=== PATIENT | male | born 1950 | race Caucasian/White ===

== ENCOUNTER 2022-01-25 14:36 | Inpatient (IN) | payer MEDICARE, OTHER ==
[~2022-01-25] VITALS: Ht 165.1 cm; Wt 117.9 kg
--- NOTE | 2022-01-25 15:08 | NUR ---
Dr Brown evaluated the pt.
[2022-01-25 15:31] LABS: HEMATOCRIT 47.4 % (36.7-47.1); MEAN CORPUSCULAR HEMOGLOBIN 29.4 uug (23.8-33.4); MEAN CORPUSCULAR VOLUME 87.6 fL (73.0-96.2); PLATELET COUNT (AUTO) 171 K/uL (152-348)
[2022-01-25 15:44] LABS: CREATININE 0.8 mg/dL (0.6-1.3); POTASSIUM 3.8 mmol/L (3.5-5.1)
--- NOTE | 2022-01-25 15:48 | NUR ---
Pt back from Ct Scan, Denies pain, SOB.
[2022-01-25 15:50] LABS: BILIRUBIN,TOTAL 0.4 mg/dL (0.2-1.0); TOTAL PROTEIN, SERUM 7.2 g/dL (6.4-8.2)
[2022-01-25 16:39] LABS: *BILIRUBIN,URIN NEGATIVE (NEGATIVE); *CLARITY,URINE CLEAR (CLEAR); *COLOR,URINE YELLOW (YELLOW); *KETONES,URINE NEGATIVE (NEGATIVE); *UROBILINOGEN,URINE 0.2 E.U./dl (NORMAL); LEUKOCYTE ESTERASE ,URINE NEGATIVE (NEGATIVE); NITRITE, URINE NEGATIVE (NEGATIVE); UGLUCOSE NEGATIVE (NEGATIVE)
[2022-01-25 16:40] LABS: *BLOOD, URINE NEGATIVE (NEGATIVE)
--- NOTE | 2022-01-25 17:45 | NUR ---
Pt sitting in chair in no acute distress. Dinner tray provided, ate w/ great appetite.
--- NOTE | 2022-01-25 18:18 | NUR ---
Dr Gustafson in to see pt.
[2022-01-25] MEDS ORDERED: ACETAMINOPHEN 325 MG TABLET PO PRN (19:15)
[2022-01-25] MEDS ORDERED: MAGNESIUM HYDROXIDE 30 ML LIQUID UDC PO PRN (19:15)
[2022-01-25] MEDS ORDERED: hydrALAZINE HCL 25 MG TABLET PO PRN (19:15)
[2022-01-25] MEDS ORDERED: HYDROCODONE/APAP 5-325MG TABLET PO PRN (19:15)
[2022-01-25] MEDS ORDERED: TEMAZEPAM 15 MG CAPSULE PO PRN (19:15)
[2022-01-25 20:00] VITALS: BP 127/58
--- NOTE | 2022-01-25 21:25 | NUR ---
Report given to Jyoti DANIELSON
--- NOTE | 2022-01-25 22:10 | NUR ---
Received patient from ER per sana, alert and oriented x4, not in respiratory distress, no complaint of pain, skin intact, safety precautions provided, call light placed within reach.
--- NOTE | 2022-01-26 05:16 | NUR ---
Slept well, no complaint of pain, not in labored breathing, vitally stable.
[2022-01-26 05:31] VITALS: BP 117/53
[2022-01-26] MEDS ORDERED: PANTOPRAZOLE SODIUM 40 MG TABLET.DR PO SCH (07:00)
[2022-01-26 07:08] LABS: HEMATOCRIT 45.1 % (36.7-47.1); MEAN CORPUSCULAR HEMOGLOBIN 29.6 uug (23.8-33.4); PLATELET COUNT (AUTO) 148 K/uL (152-348)
[2022-01-26 07:50] LABS: THYROID STIMULATING HORMONE 4.791 mIU/mL (0.358-3.740)
[2022-01-26 07:55] LABS: BILIRUBIN,TOTAL 0.5 mg/dL (0.2-1.0); PHOSPHOROUS 3.3 mg/dL (2.5-4.9); POTASSIUM 3.8 mmol/L (3.5-5.1); TOTAL PROTEIN, SERUM 6.6 g/dL (6.4-8.2)
[2022-01-26 08:30] VITALS: BP 146/64
[2022-01-26] MEDS ORDERED: METOPROLOL TARTRATE 25 MG TABLET PO SCH (09:00)
[2022-01-26] MEDS ORDERED: CYANOCOBALAMIN 1000 MCG/ML VIAL IM ONE (10:00)
[2022-01-26] MEDS ORDERED: HYDROCHLOROTHIAZIDE 12.5 MG CAPSULE PO SCH (10:00)
[2022-01-26 12:19] VITALS: BP 121/51
[2022-01-26] MEDS ORDERED: CYAN1TAB43 PO (15:15)
[2022-01-26] MEDS ORDERED: HYDR12.517 PO (15:15)
--- NOTE | 2022-01-26 16:00 | NUR ---
Pt is a/o x 4 , US carotid and echo completed. Pt is being discharged home. will be driving pt to their home. All discharge education provided, all medications explained and personal belongings at hand. IV and ID bands removed. Pt is stable, no complaint of chest pain at this time, no dizziness reported.
== END 2022-01-26 16:00 | disposition home or self-care (01) | DRG 74 ==
LOC: ER 14:36 → TELE3 21:50
PROVIDERS: ADMIT Internal Medicine; ATTEND Internal Medicine
DX: M54.10 Radiculopathy, site unspecified (principal); Z68.41 Body mass index [BMI] 40.0-44.9, adult; R53.1 Weakness; E03.9 Hypothyroidism, unspecified; I10 Essential (primary) hypertension; Z20.822 Contact with and (suspected) exposure to COVID-19; E78.00 Pure hypercholesterolemia, unspecified; E53.8 Deficiency of other specified B group vitamins; E66.9 Obesity, unspecified; I35.1 Nonrheumatic aortic (valve) insufficiency; M10.9 Gout, unspecified; E78.5 Hyperlipidemia, unspecified; I11.9 Hypertensive heart disease without heart failure; N40.0 Benign prostatic hyperplasia without lower urinary tract symptoms; M48.061 Spinal stenosis, lumbar region without neurogenic claudication
CPT/HCPCS: 36415; 70450; 71045; 72131; 83735; 84100; 84443; 84484; 85025; 87040; 93005; 93307; 93880; A4663; G0378; J3420

== ENCOUNTER 2023-10-02 17:34 | Emergency (ER) | payer MEDICARE, OTHER ==
[~2023-10-02] VITALS: Ht 167.6 cm; Wt 129.3 kg
[~2023-10-02 17:34] MED LIST: CYAN1TAB43 PO; HYDR12.517 PO
[2023-10-02] MEDS ORDERED: CYCL5TAB PO (21:18)
[2023-10-02] MEDS ORDERED: KETOROLAC TROMETHAMINE 30 MG INJ ONE (21:24)
[2023-10-02] MEDS: KETOROLAC TROMETHAMINE 30 MG INJ IM ONE (21:26)
[2023-10-02 21:51] VITALS: BP 130/78; TEMP 98.9; O2SAT 99
== END 2023-10-02 21:52 | disposition home or self-care (01) ==
LOC: ER 17:35
DX: S06.0X0A Concussion without loss of consciousness, initial encounter (principal); S33.5XXA Sprain of ligaments of lumbar spine, initial encounter; E66.9 Obesity, unspecified; Z79.899 Other long term (current) drug therapy; Z68.42 Body mass index [BMI] 45.0-49.9, adult; V49.3XXA Car occupant (driver) (passenger) injured in unspecified nontraffic accident, initial encounter; Y93.89 Activity, other specified; Y92.89 Other specified places as the place of occurrence of the external cause; Y99.8 Other external cause status
CPT/HCPCS: 99285; 70450; 72131; 72192; 96372; J1885; A4606; A4663

== ENCOUNTER 2024-07-20 07:18 | Day surgery (SDC) | payer MEDICARE, OTHER ==
[~2024-07-20 07:18] MED LIST changes: +CYCL5TAB PO
[2024-07-20 07:38] LABS: BASOPHILS # (AUTO) 0.1 K/UL (0.0-0.2); BASOPHILS % (AUTO) 0.8 % (0.0-2.0); EOSINOPHILS # (AUTO) 0.3 K/uL (0.0-0.7); EOSINOPHILS % (AUTO) 3.5 % (0.0-7.0); HEMATOCRIT 51.6 % (36.7-47.1); HEMOGLOBIN 17.7 g/dL (12.5-16.3); LYMPHOCYTES # (AUTO) 2.1 K/uL (0.8-4.8); LYMPHOCYTES % (AUTO) 28.1 % (20.5-51.5); MEAN CORPUSCULAR HEMOGLOBIN 29.2 uug (23.8-33.4); MEAN CORPUSCULAR HGB CONC 34 g/dL (32.5-36.3); MEAN CORPUSCULAR VOLUME 85.3 fL (73.0-96.2); MONOCYTES # (AUTO) 0.6 K/uL (0.1-1.30); MONOCYTES % (AUTO) 8.1 % (0.0-11.0); NEUTROPHILS # (AUTO) 4.4 K/uL (1.8-8.9); NEUTROPHILS % (AUTO) 59.5 % (38.5-71.5); PLATELET COUNT (AUTO) 170 K/uL (152-348); RED BLOOD CELL COUNT(AUTO) 6.04 MIL/uL (4.06-5.63); RED CELL DISTRIBUTION WIDTH 15.1 % (12.1-16.2); WHITE BLOOD COUNT (AUTO) 7.4 K/uL (3.6-10.2)
[2024-07-20 07:45] LABS: DIFFERENTIAL COMMENT 1
[2024-07-20] MEDS ORDERED: MIDAZOLAM HCL 2 MG/2 ML VIAL ONE (07:48)
[2024-07-20] MEDS ORDERED: FENTANYL CITRATE 100 MCG/2 ML AMPUL ONE (07:48)
[2024-07-20 08:15] LABS: CALCIUM 9.1 mg/dL (8.5-10.1); CARBON DIOXIDE 29 mmol/L (21-32); CHLORIDE 105 mmol/L (98-107); GLUCOSE 87 mg/dL (74-106); POTASSIUM 3.7 mmol/L (3.5-5.1); SODIUM SERUM 141 mmol/L (136-145); UREA NITROGEN, BLOOD 12 mg/dL (7-18)
[2024-07-20 08:31] LABS: *BLOOD, URINE 2+ (NEGATIVE); *CLARITY,URINE CLEAR (CLEAR); *COLOR,URINE YELLOW (YELLOW); *KETONES,URINE 1+ (NEGATIVE); *UROBILINOGEN,URINE 0.2 E.U./dl (NORMAL); LEUKOCYTE ESTERASE ,URINE NEGATIVE (NEGATIVE); NITRITE, URINE NEGATIVE (NEGATIVE); PH,URINE 6.5 (5.0-8.0); UGLUCOSE NEGATIVE (NEGATIVE)
[2024-07-20 08:47] LABS: *BILIRUBIN,URIN 1+ (NEGATIVE); *PROTEIN,URINE 3+ (NEGATIVE)
[2024-07-20] MEDS ORDERED: PROPOFOL 200 MG/20 ML BOTTLE ONE (08:57)
[2024-07-20 09:27] LABS: BACTERIA,URINE MODERATE /HPF (NONE SEEN); SQUAMOUS EPITHELIAL CELL,UR MODERATE /HPF (NONE SEEN); WBC,URINE 0-3 /HPF (0-3); YEAST,URINE FEW /HPF (NONE SEEN)
[2024-07-20] MEDS ORDERED: KETOROLAC TROMETHAMINE 30 MG INJ ONE (09:43)
[2024-07-20] MEDS: KETOROLAC TROMETHAMINE 30 MG INJ IVP ONE (10:05)
[2024-07-20 11:15] VITALS: TEMP 97.5
== END 2024-07-20 11:27 | disposition home or self-care (01) ==
LOC: DS 07:18
PROVIDERS: ATTEND Surgery
DX: D50.9 Iron deficiency anemia, unspecified (principal); K64.1 Second degree hemorrhoids; D12.3 Benign neoplasm of transverse colon; I44.4 Left anterior fascicular block; I51.7 Cardiomegaly; I10 Essential (primary) hypertension; Z79.899 Other long term (current) drug therapy; Z79.01 Long term (current) use of anticoagulants; Z98.890 Other specified postprocedural states
CPT/HCPCS: 36415; 45380; 71045; 80048; 81001; 83735; 85025; 85730; 87086; 88305; 93005; J1100; J1885; J2250; J3010; J7120; A4663; J3490